=== PATIENT | male | born 1965 | race Caucasian/White ===

== ENCOUNTER 2017-05-21 03:08 | Emergency (ER) | payer OTHER ==
[2017-05-21] MEDS ORDERED: Lorazepam 0.5 MG TAB ONE (03:27)
== END 2017-05-21 04:09 | disposition home or self-care (01) ==
LOC: BURERS 03:08
DX: F41.9 Anxiety disorder, unspecified (principal); Z87.891 Personal history of nicotine dependence
CPT/HCPCS: 99284